=== PATIENT | female | born 2000 | race Two or more races ===

== ENCOUNTER 2024-10-28 11:02 | Emergency (ER) | payer MEDICAID, SELFPAY ==
[2024-10-28 11:11] VITALS: BP 110/66; PULSE 97; RESP 18; TEMP 36.8; O2SAT 100; BMI 19.0
--- NOTE | 2024-10-28 11:20 | XR_ITS ---
Examination: Abdomen sonogram, Limited Date and time of exam: October 28, 2024 1127 hrs. Indications: Mid abdominal burning pain beginning last night with vomiting this morning Technique: Real-time ferro scale transabdominal sonographic images of the upper abdomen obtained. Findings: Normal gallbladder. Normal common bile duct 0.2 cm Pancreatic head 2.2 cm Liver 14.4 cm smooth contour no focal liver lesions Normal hepatopedal portal venous flow Patent IVC Impression: Normal gallbladder Normal common bile duct Liver normal size no focal liver lesions
--- NOTE | 2024-10-28 11:20 | PD.EDRME ---
Rapid Medical Screening Exam RME Arrival date/time: 10/28/24 11:02 23-year-old female presents to the emergency department with complaints of abdominal pain Chief Complaint: Abdominal Pain Vital signs: Vital Signs Temperature 98.3 F 10/28/24 11:11 Pulse Rate 97 10/28/24 11:11 Respiratory Rate 18 10/28/24 11:11 Blood Pressure 110/66 10/28/24 11:11 Pulse Oximetry (%) 100 10/28/24 11:11 Oxygen Delivery Method Room Air 10/28/24 11:11
[2024-10-28] MEDS: FAMOTIDINE 20 MG TABLET PO (11:25)
--- NOTE | 2024-10-28 11:47 | PD.EDADULT ---
ED General RME/HPI General Chief complaint: Abdominal Pain Stated complaint: Abdominal pain, vomiting since last night Time Seen by Provider: 10/28/24 11:37 Arrival date/time: 10/28/24 11:02 CC: Epigastric right upper and left upper quadrant abdominal pain indigestion nausea vomiting HPI onset 11:00 last night. Prior history of similar events but not as severe as this 1. No active vomiting at the time of exam. Patient is awake alert oriented no other complaints denies diarrhea. RME / HPI RME / HPI narrative: 10/28/24 11:02 23-year-old female presents to the emergency department with complaints of abdominal pain Related Data Previous Rx's ?Medication ?Instructions ?Recorded famotidine 20 mg tablet 20 mg PO QDAY #30 tabs 10/28/24 Allergies Allergy/AdvReac Type Severity Reaction Status Date / Time Penicillins Allergy Intermediate Hives Verified 10/28/24 11:40 Review of Systems Review of Systems Narrative Review of Systems: GEN: No fever, no chills, no weight loss EYES: No discharge, no visual changes, no pain HEENT: No ear pain, no congestion, no sore throat PULM: No shortness of breath, no cough, no congestion CV: No chest pain, no dyspnea on exertion, no palpitations GI: + nausea, + vomiting, + diarrhea, no pain, no constipation : No frequency, no urgency, no dysuria MUSC/SKEL: No joint pain, no back pain SKIN: No rash PSYCH: No hallucinations, no depression HEME/LYMPH: No easy bleeding or bruising tendencies NEURO: No weakness, no headache Past Medical History Past Medical History NEUROLOGIC: Negative Neurological Disorders CARDIAC: Negative Cardiac Disorders or Congestive Heart Failure RESPIRATORY: Negative Chronic Obstructive Pulmonary Disease (COPD) GASTROINTESTINAL: Negative Gastrointestinal Disorders or Hepatitis GENITOURINARY: Negative Genitourinary Disorders or Renal Disease MUSCULOSKELETAL: Negative Musculoskeletal Disorders ENDOCRINE: Negative Endocrine Disorders, Diabetes Mellitus Type 1 or Diabetes Mellitus Type 2 HEMATOLOGIC: Negative Blood Disorders OTHER HISTORY: Negative Hospitalization, Autoimmune Disease, Down Syndrome, Developmental Delay, Shingles, Falls, Blood Transfusions, MRSA, VRSA, Human Immunodeficiency Virus (HIV), Chicken Pox, Measles, Mumps, Rubella (Swedish Measles), Pertussis, Clostridium Difficile or Cancer Family History FAMILY HISTORY: Positive Family Cancer; Negative Family Psychiatric Problems, Family Respiratory Disorders, Family Cardiac Disorders, Family Gastrointestinal Problems, Family Surgery or Family Anesthesia Reaction Social History SMOKING STATUS: Never smoker ED Exam Narrative Physical exam: [General: Not in any acute distress Head normocephalic HEENT: Face: Patient has a birthmark that involves the sclera of the eye as well as the left side of the face pupils are PERRLA EOMs intact all other subsystems of HEENT are within acceptable limits Neck is supple nontender Chest equal chest rise nontender to palpation Respiratory: Clear to auscultation no wheezes crackles or rubs CV: Rate rhythm is regular no murmurs rubs or clicks Abdomen is soft, epigastric right upper and left upper quadrant tenderness with palpation. No masses positive bowel sounds all 4 quadrants Back: No CVA tenderness no spinous process tenderness from cervical spine thoracic and lumbar spine Skin: Intact no petechiae rash induration ulceration or crepitus Extremities: Moving all extremity against resistance cap refill less than 2 seconds neurosensory intact Neuro: Awake alert oriented x3 Glascow coma 15 no focal deficits] Course Quality Measures none Orders Category Date Time Status US gall bladder Stat Exams 10/28/24 11:20 Completed CBC Stat Lab 10/28/24 11:47 Completed Comprehensive Metabolic Panel Stat Lab 10/28/24 11:47 Completed HCG Qualitative,Urine Stat Lab 10/28/24 11:50 Completed Lipase Stat Lab 10/28/24 11:47 Completed UA, C/S IF [Urinalysis, C/S if Indicated] Stat Lab 10/28/24 11:50 Completed Famotidine [Pepcid] Med 10/28/24 11:20 Discontinued 20 mg PO X1 ONE Lidocaine 2% Viscous [Xylocaine 2% Viscous] Med 10/28/24 11:49 Discontinued 15 ml PO X1 ONE mg Hyd/Al Hyd/Justin Susp [Maalox Susp] Med 10/28/24 11:49 Discontinued 30 ml PO X1 ONE Vital Signs Vital signs: Vital Signs Temperature 98.3 F 10/28/24 11:11 Pulse Rate 97 10/28/24 11:11 Respiratory Rate 18 10/28/24 11:11 Blood Pressure 110/66 10/28/24 11:11 Pulse Oximetry (%) 100 10/28/24 11:11 Oxygen Delivery Method Room Air 10/28/24 11:11 [facility] Patient data External records reviewed:: [facility] previous records Clinical information provided by:: patient Social determinants that could affect healthcare access:: none Patient has the following chronic illnesses:: None How is presenting disease/condition affected by chronic disease/condition?: uneffected by Evaluation data The following diagnostics were reviewed and interpreted by me:: lab results and radiology exam(s) Lab and/or radiology exams considered but not ordered:: CBC shows no acute leukocytosis anemia thrombocytopenia CMP shows no acute electrolyte imbalances renal impairment transaminitis or T. bili elevation Lipase normal Ultrasound of the gallbladder is within acceptable limits as interpreted by me read by radiology. Interpretation Summary: Patient got significant relief from the viscous lidocaine and Maalox patient has reflux we will discharge the patient home bland diet and famotidine. Medications Medications considered but not ordered:: None Medication administrations:: Medication Administration History Discontinued Medications Al Hydrox/Mg Hydrox/Simethicone (Mg Hyd/Al Hyd/Justin (Maalox Reg) Susp 30 Ml Udc) 30 ml PO X1 ONE Stop: 10/28/24 11:50 Last Admin: 10/28/24 12:13 Dose: 30 ml Documented By: SHIV Famotidine (Famotidine 20 Mg Tablet) 20 mg PO X1 ONE Stop: 10/28/24 11:21 Last Admin: 10/28/24 11:25 Dose: 20 mg Documented By: CASPER Lidocaine HCl (Lidocaine Viscous 2% 15 Ml Udc) 15 ml PO X1 ONE Stop: 10/28/24 11:50 Last Admin: 10/28/24 12:13 Dose: 15 ml Documented By: SHIV None Consultations Consultation(s) initiated? (list below): No Diagnosis Differential Diagnosis ED Complaint MDM: Gastritis cholelithiasis pancreatitis Most likely diagnosis given after review of the tests above:: Reflux Admission Indicated Admission indicated?: not indicated Explain why admission is indicated or not indicated:: Stable for discharge Admission Request Was there a request for admission?: No Disposition Plan Disposition Plan: Discharge Discharge Attestation Discharge Attestation: The patient and all family members were given an opportunity to ask questions and understood the discharge instructions. Discharge instructions specifically effects, indications for sooner follow up or return to the emergency department, and the expected course of current diagnosis. Patient condition: Stable Medical Decision Making Differential Diagnosis Differential Diagnosis: Gastritis cholelithiasis pancreatitis Lab Data 10/28/24 11:47 10/28/24 11:47 Labs: Lab Results 10/28/24 10/28/24 Range/Units 11:47 11:50 WBC 10.5 (3.6-11.0) Thou/mm3 RBC 4.04 (4.00-5.20) Miln/mm3 Hgb 12.4 (12.0-16.0) g/dL Hct 36.7 (36.0-46.0) % MCV 91 (80-100) fL MCH 30.7 (25.0-35.0) pg MCHC 33.8 (31.0-37.0) g/dl RDW Std Deviation 48.1 H (36.4-46.3) fL Plt Count 223 (140-440) Thou/mm3 Neut % (Auto) 83 H (37-80) % Lymph % (Auto) 9 L (10-50) % [place] % (Auto) 5 (0-12) % Eos % (Auto) 2 (0-10) % Baso % (Auto) 0 (0-2.5) % Neut # (Auto) 8.7 H (1.8-7.7) Thou/mm3 Lymph # (Auto) 1.0 (1.0-4.8) Thou/mm3 [place] # (Auto) 0.6 (0.0-0.8) Thou/mm3 Eos # (Auto) 0.2 (0.0-0.5) Thou/mm3 Baso # (Auto) 0.0 (0.0-0.2) Thou/mm3 Immature Gran # (Auto) 0.02 H (0.00-0.00) Thou/mm3 Absolute Nucleated RBC 0.00 (0.00-0.00) Thou/mm3 Immature Gran % 0 (0-0) % Nucleated RBC % 0 (0) /100 WBC Sodium 136 (136-145) mMol/L Potassium 3.5 (3.4-5.1) mMol/L Chloride 105 (98-107) mMol/L Carbon Dioxide 22.7 (20.0-31.0) mMol/L Anion Gap 8 (7-16) BUN 11 (9-23) mg/dL Creatinine 0.7 (0.6-1.3) mg/dL Estim Creat Clear Calc 94.7 (>60) mL/min eGFR > 60 (60 - ) See Note BUN/Creatinine Ratio 16 (12-20) Ratio Glucose 101 (74-106) mg/dL Calculated Osmolality 271 L (275-295) Calcium 9.1 (8.3-10.6) mg/dL Corrected Calcium 9.1 (8.5-10.1) mg/dL Total Bilirubin 0.7 (0.3-1.2) mg/dL AST 10 (0-34) U/L ALT 7 L (10-49) U/L Alkaline Phosphatase 68 (46-116) U/L Total Protein 7.2 (5.7-8.2) gm/dL Albumin 4.7 (3.5-5.0) gm/dL Globulin 2.5 (2.3-3.5) gm/dL Albumin/Globulin Ratio 1.9 (1.2-2.2) Lipase 51 (12-53) U/L Ur Collection Type Clean Catch Urine Color Yellow (Lt Yel-Yel) Urine Clarity Clear (Clear/Hazy) Urine pH 7.0 (5.0-7.0) Ur Specific [place] 1.031 (1.001-1.035) Urine Protein Trace (Neg - Trace) Urine Glucose (UA) Negative (Negative) Urine Ketones Negative (Negative) Urine Blood 2+ A (Negative) Urine Nitrite Negative (Negative) Urine Bilirubin Negative (Negative) Urine Urobilinogen (Auto) Negative (0.0-1.0) mg/dL Ur Leukocyte Esterase Positive (Negative) Urine RBC 20 H (0-3) /hpf Urine WBC 11 H (0-5) /hpf Ur Squamous Epith Cells 12 H (0-5) /hpf Urine Bacteria 1+ A (None) Ur Culture Indicated? Contaminated Urine HCG, Qual Negative Discharge Plan Plan Patient Disposition: HOME (Self Care) Patient condition on transfer: Stable Prescriptions/Referrals Prescriptions/Med Rec: New famotidine 20 mg tablet 20 mg PO QDAY Qty: 30 0RF Referrals: Carlos Thomason MD [Primary Care Provider] - In 1 week Problem List Clinical Impression: Acid reflux Patient/Caregiver Discharge Instructions Education Materials: ED GERD (Adult), ED Diet, Angelina (Adult) Print Language: Malay Stand Alone Forms: Dasia Award Info., Patient Portal Info Letter, Work/School Release PA/RELIGIOUS STUDIES PROFESSOR Supervising Physician PA/RELIGIOUS STUDIES PROFESSOR Supervising Physician: Larry Riso ENP
[2024-10-28 11:59] LABS: Collection Type, Urine Clean Catch
[2024-10-28 12:04] LABS: Basophils % (Auto) 0 % (0-2.5); Eosinophils # (Auto) 0.2 Thou/mm3 (0.0-0.5); Eosinophils % (Auto) 2 % (0-10); Hematocrit 36.7 % (36.0-46.0); Hemoglobin 12.4 g/dL (12.0-16.0); Immature Granulocytes % (Auto) 0 % (0-0); Immature Granulocytes Auto 0.02 Thou/mm3 (0.00-0.00); Lymphocytes % (Auto) 9 % (10-50); Mean Corpuscular HGB Conc 33.8 g/dl (31.0-37.0); Mean Corpuscular Hemoglobin 30.7 pg (25.0-35.0); Mean Corpuscular Volume 91 fL (80-100); Monocytes # (Auto) 0.6 Thou/mm3 (0.0-0.8); Monocytes % (Auto) 5 % (0-12); Neutrophils # (Auto) 8.7 Thou/mm3 (1.8-7.7); Neutrophils % (Auto) 83 % (37-80); Nucleated Red Blood Cell % 0 /100 WBC (0); Platelet Count 223 Thou/mm3 (140-440); RDW Standard Deviation 48.1 fL (36.4-46.3); Red Blood Count 4.04 Miln/mm3 (4.00-5.20); White Blood Count 10.5 Thou/mm3 (3.6-11.0)
[2024-10-28] MEDS: LIDOCAINE VISCOUS 2% 15 ML UDC PO (12:13)
[2024-10-28] MEDS: MG HYD/AL HYD/SIME (Maalox Reg) SUSP 30 ML UDC PO (12:13)
[2024-10-28 12:18] LABS: Bacteria,Urine 1+; Bilirubin,Urine Negative (Negative); Blood,Urine 2+ (Negative); Clarity,Urine Clear (Clear/Hazy); Color,Urine Yellow (Lt Yel-Yel); Culture Indicated,Urine Contaminated; Glucose, Urine Negative (Negative); HCG Qualitative,Urine Negative; Ketones,Urine Negative (Negative); Leukocyte Esterase,Urine Positive (Negative); Nitrite,Urine Negative (Negative); Protein,Urine Trace (Neg - Trace); RBC,Urine 20 /hpf (0-3); Specific Gravity,Urine 1.031 (1.001-1.035); Squamous Epithelial Cell,Urine 12 /hpf (0-5); Urobilinogen,Urine Negative mg/dL (0.0-1.0); WBC,Urine 11 /hpf (0-5)
[2024-10-28 12:31] LABS: Alanine Aminotransferase 7 U/L (10-49); Albumin, Serum 4.7 gm/dL (3.5-5.0); Albumin/Globulin Ratio 1.9 (1.2-2.2); Alkaline Phosphatase 68 U/L (46-116); Anion Gap 8 (7-16); Aspartate Amino Transferase 10 U/L (0-34); BUN/Creatinine Ratio 16 Ratio (12-20); Bilirubin,Total 0.7 mg/dL (0.3-1.2); Blood Urea Nitrogen 11 mg/dL (9-23); Calcium 9.1 mg/dL (8.3-10.6); Calcium (Corrected) 9.1 mg/dL (8.5-10.1); Carbon Dioxide 22.7 mMol/L (20.0-31.0); Chloride 105 mMol/L (98-107); Creatinine (Component) 0.7 mg/dL (0.6-1.3); Estimated Creatinine Clearance 94.7 mL/min (>60); Globulin 2.5 gm/dL (2.3-3.5); Glucose 101 mg/dL (74-106); Lipase 51 U/L (12-53); Osmolality,Calculated 271 (275-295); Potassium 3.5 mMol/L (3.4-5.1); Sodium 136 mMol/L (136-145); Total Protein 7.2 gm/dL (5.7-8.2); eGFR > 60 See Note
[2024-10-28 13:16] VITALS: BP 111/67; PULSE 98; RESP 17; O2SAT 100
[2024-10-28 13:18] VITALS: TEMP 36.8
== END 2024-10-28 13:23 | disposition home or self-care (01) ==
PROVIDERS: Nurse Practitioner Primary Care; Emergency Provider Emergency Medicine; PCP Family Medicine
DX: K21.9 Gastro-esophageal reflux disease without esophagitis (principal)
CPT/HCPCS: 36415; 76705; 80053; 81001; 81025; 83690; 85025; 99284; J3490; A9270

== ENCOUNTER 2025-09-20 09:58 | Inpatient (IN) | payer MEDICAID, SELFPAY ==
[2025-09-20] VITALS (164 sets, daily range): BP systolic 95–144; BP diastolic 51–89; PULSE 57–129; RESP 16–99; TEMP 36.6–36.9; O2SAT 87–100; BMI 24.5
[2025-09-20 10:41] LABS: ROM Kit Lot # 58106258
[2025-09-20 10:42] LABS: ROM Swab Mixed By: SANCF1; Rupture of Fetal Membranes Negative (Negative); Swb Mxed in Solvent 1 min? Yes
--- NOTE | 2025-09-20 11:30 | XR_ITS ---
EXAMINATION: age Limited TECHNIQUE: Limited transabdominal sonographic images pelvis INDICATIONS: Leaking amniotic fluid today Date and time: September 20, 2025, 1150 hours FINDINGS: Viable intrauterine gestation cephalic presentation spine posterior Cardiac motion 155 bpm Amniotic fluid index 4.0 cm IMPRESSION: Viable intrauterine gestation cephalic presentation Amniotic fluid index 4.0 cm
--- NOTE | 2025-09-20 12:39 | ESHP_ITS ---
Documentation for date of: 09/20/25 OB Labor/Induct. HPI History of Present Illness : 2 Para: 1 Term pregnancies: 1 pregnancies: 0 Living children: 1 History of Abortions: Spontaneous and Elective: 0 History of Vaginal deliveries: 1 History of sections: No History of : No TERESA: 09/22/25 Gestational Age (weeks): 39 Gestational Age (days): 5 Indication for induction: other (oligohydramnios) Comments: patient sees Dr Wei at [facility] and has been seeing him regularly / Last baby delivered by Lina Velazquez CNM per patient History of Present Dating criteria: based on LMP only Adequate Care: Yes Ultrasounds: abnormal US findings Abnormal ultrasound findings: JEFF is 3.9 Obstetrical complications: none Medical complications: none Labs Maternal Blood Type: O Pos Labs: Negative: Hepatitis B, HIV and Group Beta Strep Narrative: order GC and CT on urine Past Medical History Surgical History SURGICAL: Negative Section Meds Home Medications and Allergies Home Medications ?Medication ?Instructions ?Recorded ?Confirmed ?Type vits no.130-ferrous fum tab 09/20/25 History 27 mg iron-folic acid 800 mcg tablet ( Vitamin) Allergies Allergy/AdvReac Type Severity Reaction Status Date / Time Penicillins Allergy Intermediate Hives Verified 09/20/25 10:04 OB Exam Physical Exam Vital signs: Temp Pulse Resp BP Pulse Ox 97.9 F 81 18 118/67 100 09/20/25 10:13 09/20/25 10:14 09/20/25 10:13 09/20/25 10:14 09/20/25 12:09 Narrative: Size equal to dates uterus non tender Occasional/ contractions non tender FHR is category 1 feta presentation is vertex cervix 3 cm, 60 % and -2 , posterior RN exam EFW by triston Negro is 6.8 lbs Alert and oriented x 3 no shortness of breath Pain no chest pain no palpitations CVS regular rate and rhythm No CVAT Abdomen nontender, normal bowel sounds No guarding no rigidity No hernias OB Assessment & Plan Assessment and Plan (1) 39 weeks gestation of : Status: Acute (2) Oligohydramnios: Status: Acute Additional Plan Induction method: per misoprostol protocol Plan: induction Additional Plan Comment: patient given assessment and plan and agrees to move forwards / Patient would like CNM for delivery and can be transferred if accepted by CNM / I am available for back up (2) Oligohydramnios Qualifiers: Fetus number: single or unspecified fetus Trimester: third trimester Qualified Code(s): O41.03X0 - Oligohydramnios, third trimester, not applicable or unspecified
[2025-09-20 13:20] LABS: Basophils # (Auto) 0.0 Thou/mm3 (0.0-0.2); Basophils % (Auto) 0 % (0-2.5); Eosinophils # (Auto) 0.1 Thou/mm3 (0.0-0.5); Eosinophils % (Auto) 1 % (0-10); Hematocrit 34.0 % (36.0-46.0); Hemoglobin 11.3 g/dL (12.0-16.0); Immature Granulocytes Auto 0.09 Thou/mm3 (0.00-0.00); Lymphocytes # (Auto) 1.8 Thou/mm3 (1.0-4.8); Lymphocytes % (Auto) 16 % (10-50); Mean Corpuscular HGB Conc 33.2 g/dl (31.0-37.0); Mean Corpuscular Hemoglobin 29.7 pg (25.0-35.0); Mean Corpuscular Volume 90 fL (80-100); Monocytes # (Auto) 0.8 Thou/mm3 (0.0-0.8); Monocytes % (Auto) 7 % (0-12); Neutrophils # (Auto) 8.2 Thou/mm3 (1.8-7.7); Neutrophils % (Auto) 75 % (37-80); Nucleated Red Blood Cell # 0.00 Thou/mm3 (0.00-0.00); Nucleated Red Blood Cell % 0 /100 WBC (0); Platelet Count 197 Thou/mm3 (140-440); RDW Standard Deviation 46.8 fL (36.4-46.3); Red Blood Count 3.80 Miln/mm3 (4.00-5.20); White Blood Count 11.0 Thou/mm3 (3.6-11.0)
[2025-09-20] MEDS: TERBUTALINE SULF INJ 1 MG/ML VIAL 0.25 MG SC (13:42)
[2025-09-20 13:58] LABS: Syphilis Nonreactive (Nonreactive)
--- NOTE | 2025-09-20 15:31 | PD.LDPN ---
Documentation for date of: 09/20/25 OB Labor Progress Note Pain Control Pain control: tolerating well Pelvic Exam Dilation (cm): 3-4 Effacement (%): 60 station: -2 Amniotic membrane status: Leaking Contractions Monitor mode: External Contraction frequency: 2-6 Contraction phase: Resting Contraction intensity: Mild Status status: Category l Assessment and Plan Plan OB labor note: continuous present management CNM Management MD Consulted (describe details below): Yes
[2025-09-20 17:43] LABS: Chlamydia trachomatis PCR Negative (Not Detect); Neisseria Gonorrhoeae DNA PCR Negative (Not Detect); Trichomonas Negative (Negative)
[2025-09-20] MEDS: OXYTOCIN in NS 30 units 30 UNIT/500 ML BAG IV (18:10)
[2025-09-20] MEDS: MINERAL OIL 30 ML UDC TOP (22:10)
[2025-09-20] MEDS: OXYTOCIN INJ 10 UNIT/ML VIAL IM (22:18)
[2025-09-20] MEDS: OXYTOCIN in NS 20 units 20 UNIT/1,000 ML BAG 125 UNIT IV (22:21)
--- NOTE | 2025-09-20 22:42 | OBDSUM_ITS ---
Data (Sinha) Data Hx Section: No : 2 Term: 1 : 0 Livin Abortions: Spontaneous & Theraputic: 0 Delivery Data (Sinha) Labor Data Initiation of labor: Induction Induction/Augmentation Agent: Cytotec-PO and Pitocin ROM date: 09/20/25 ROM time: 08:15 Amniotic membrane rupture type: Spontaneous Amniotic fluid description: Clear Delivery Data EDC: 09/22/25 EDC calculated by:: LMP/early US confirmation Date of arrival to unit: 09/20/25 Time of arrival to unit: 09:58 Onset of labor date: 09/20/25 Onset of labor time: 18:10 Complete dilation date: 09/20/25 Complete dilation time: 21:34 [place] delivery date: 09/20/25 [place] delivery time: 22:14 Gestational age (weeks): 39 Gestational age (days): 5 Placenta delivery date: 09/20/25 Placenta delivery time: 22:17 Stage 1 total time: Labor - Stage 1 Duration 3 hours and 24 minutes Delivered by: Lina Velazquez Delivery nurse: Jarod Mayer nurse: Krystle Vanegas RN Cutter Operator Helper at delivery: No Support person(s) at delivery: father of the baby Sarmad Delivery Method Delivery method: Normal Vaginal Delivery Presentation: Vertex position: OA Anesthesia Type Anesthesia Type: Epidural Delivery Room Medications Delivery room medications: Pitocin 10 u IM, Pitocin 20 u IV, Cytotec 800 VA and other (TXA) Placenta Placenta delivery description: Spontaneous (inspected, intact) Cord blood sent to lab: Yes cord blood collection: Cord Blood Type Episiotomy Episiotomy description: None Lacerations #1: Periurethral: small, no repair EBL Estimated blood loss (ml): 400 Umbilical Cord cord description: 3 Vessels (posterior arm/left) Data (Sinha) Data order: 1 's gender: Female Identification band number: [id number] weight (gms): 3195 g Weight (pounds): 7 lbs and 0.7 ozs 1 minute: 8 5 minutes: 9
[2025-09-20] MEDS: BENZO/LANO/ALOE (Dermoplast) 60 GM CAN 1 SPRAY TOP (22:51)
[2025-09-20] MEDS: TRANEXAMIC ACID 1,000 MG IVPB 1,000 MG/100 ML BAG 200 MG IV (22:52)
[2025-09-21] VITALS (7 sets, daily range): BP systolic 104–130; BP diastolic 56–77; PULSE 64–85; RESP 16–18; TEMP 36.7–37.1; O2SAT 97–100
[2025-09-21] MEDS: IBUPROFEN TAB 400 MG TABLET 800 MG PO ×2 (02:16→17:23)
[2025-09-21 07:43] LABS: Basophils # (Auto) 0.0 Thou/mm3 (0.0-0.2); Basophils % (Auto) 0 % (0-2.5); Eosinophils # (Auto) 0.0 Thou/mm3 (0.0-0.5); Eosinophils % (Auto) 0 % (0-10); Hematocrit 29.9 % (36.0-46.0); Hemoglobin 10.1 g/dL (12.0-16.0); Immature Granulocytes Auto 0.07 Thou/mm3 (0.00-0.00); Lymphocytes # (Auto) 1.7 Thou/mm3 (1.0-4.8); Lymphocytes % (Auto) 12 % (10-50); Mean Corpuscular HGB Conc 33.8 g/dl (31.0-37.0); Mean Corpuscular Hemoglobin 30.4 pg (25.0-35.0); Mean Corpuscular Volume 90 fL (80-100); Monocytes # (Auto) 1.2 Thou/mm3 (0.0-0.8); Monocytes % (Auto) 9 % (0-12); Neutrophils # (Auto) 10.5 Thou/mm3 (1.8-7.7); Neutrophils % (Auto) 78 % (37-80); Nucleated Red Blood Cell # 0.00 Thou/mm3 (0.00-0.00); Nucleated Red Blood Cell % 0 /100 WBC (0); Platelet Count 155 Thou/mm3 (140-440); RDW Standard Deviation 47.7 fL (36.4-46.3); Red Blood Count 3.32 Miln/mm3 (4.00-5.20); White Blood Count 13.5 Thou/mm3 (3.6-11.0)
[2025-09-21] MEDS: ACETAMINOPHEN 325 MG TABLET 650 MG PO (08:12)
--- NOTE | 2025-09-21 08:39 | PD.LDDS ---
DS: Providers Provider Date of admission: 09/20/25 12:07 Primary care physician: Carlos Thomason MD Admitting Provider: Nicole Rodriguez MD Attending Provider on Admission: Lina Velazquez CNM Consults: 09/20/25 23:52 Referral Routine Comment: Attending Provider on DC: Lina Velazquez CNM Discharging Provider: Lina Velazquez CNM DS: Diagnosis Problem List Completed Was Problem List Reviewed/Reconciled?: Yes Summary/Hosp Course Peripartum Data Delivery Method: Normal Vaginal Delivery Episiotomy Description: None Laceration Description: yes (small pu no repair) complications: none Time Spent with Patient Time attestation: Total time spent providing and/or coordinating discharge services: Exam Vital Signs Temp Pulse Resp BP Pulse Ox O2 Del Method 98.8 F 64 18 130/60 100 Room Air 09/21/25 08:00 09/21/25 08:00 09/21/25 08:00 09/21/25 08:00 09/21/25 08:00 09/21/25 08:00 Discharge Plan Plan Patient Disposition: HOME (Self Care) Patient condition on transfer: Stable Prescriptions/Referrals Prescriptions/Med Rec: No Action Vitamin 27 mg iron- 800 mcg tablet Patient Comments: TAKE 1 TABLET BY MOUTH EVERY DAY Referrals: Carlos Thomason MD [Primary Care Provider, Family Practice] Patient/Caregiver Discharge Instructions Meds to Beds: No Discharge Activity: resume usual activities Print Language: Spanish Activity Restrictions/Additional Instructions: Discharge home with baby. Okay to board if baby is held. Discussed comfort measures for periurethral laceration. Return in 3 weeks with OB provider. Continue vitamins and iron. Tylenol ibuprofen for pain. Discussed danger signs symptoms and ER precautions. Discussed signs symptoms of infection Stand Alone Forms: Dasia Award Info., Patient Portal Info Letter Discharge Order Discharge Orders: Discharge (Routine); Ordered 09/21/25 Ordered By: Lina Velazquez Planned Discharge Date 09/21/25
--- NOTE | 2025-09-21 08:43 | ESPR_ITS ---
Subjective Subjective Interval history: No complaints of pain. No dizziness. Bonding breast Exam Vital Signs Temp Pulse Resp BP Pulse Ox O2 Del Method 98.8 F 64 18 130/60 100 Room Air 09/21/25 08:00 09/21/25 08:00 09/21/25 08:00 09/21/25 08:00 09/21/25 08:00 09/21/25 08:00 Narrative Exam Vital signs stable afebrile. Breast soft. Fundus firm below umbilicus. Perineum intact no swelling. Small lochia. Uterus well involuted. Negative Homans' sign. 2+ DTRs Objective Labs 09/21/25 07:17 Labs: Laboratory Results - last 24 hr 09/20/25 09/20/25 09/20/25 10:05 10:20 12:20 WBC 11.0 RBC 3.80 L Hgb 11.3 L Hct 34.0 L MCV 90 MCH 29.7 MCHC 33.2 RDW Std Deviation 46.8 H Plt Count 197 Neut % (Auto) 75 Lymph % (Auto) 16 [place] % (Auto) 7 Eos % (Auto) 1 Baso % (Auto) 0 Neut # (Auto) 8.2 H Lymph # (Auto) 1.8 [place] # (Auto) 0.8 Eos # (Auto) 0.1 Baso # (Auto) 0.0 Immature Gran # (Auto) 0.09 H Absolute Nucleated RBC 0.00 Immature Gran % 1 H Nucleated RBC % 0 Membrane Rupture Negative Syphilis Serology Nonreactive Chlam trachomat DNA PCR Negative N.gonorrhoeae DNA (PCR) Negative Trichomonas DNA Probe Negative Blood Type O Positive Antibody Screen NEGATIVE Blood Bank Wristband ID Yes 09/21/25 07:17 WBC 13.5 H RBC 3.32 L Hgb 10.1 L Hct 29.9 L MCV 90 MCH 30.4 MCHC 33.8 RDW Std Deviation 47.7 H Plt Count 155 D Neut % (Auto) 78 Lymph % (Auto) 12 [place] % (Auto) 9 Eos % (Auto) 0 Baso % (Auto) 0 Neut # (Auto) 10.5 H Lymph # (Auto) 1.7 [place] # (Auto) 1.2 H Eos # (Auto) 0.0 Baso # (Auto) 0.0 Immature Gran # (Auto) 0.07 H Absolute Nucleated RBC 0.00 Immature Gran % 1 H Nucleated RBC % 0 Membrane Rupture Syphilis Serology Chlam trachomat DNA PCR N.gonorrhoeae DNA (PCR) Trichomonas DNA Probe Blood Type Antibody Screen Blood Bank Wristband ID Assessment & Plan Problem List (1) 39 weeks gestation of : Status: Acute (2) Oligohydramnios: Status: Acute Assessment Comment Assessment comment: 24 hr pp Plan Comment Plan Comment: Discharge home with baby today. And okay to board if baby is held until tomorrow. Discussed danger signs symptoms and ER precautions. Discussed signs symptoms of infection. Continue vitamins and iron. Tylenol or ibuprofen for pain. Discussed signs and symptoms of infection. And schedule with OB provider in 3 weeks for check Time Spent With Patient Time: Total time spent is greater than 50% in coordination of care (as documented) at patient's floor/unit and/or counseling patient:
--- NOTE | 2025-09-21 15:20 | PC.SS ---
BUDGET TECHNICIAN conducted bedside contact with the patient to address nursing referral indicating patient possessed history of anxiety.? BUDGET TECHNICIAN introduced self and role.? At bedside with patient was CLARISA, Sarmad Munoz.? Patient gave permission for FOB to be present during discussion.? Patient confirmed past history of anxiety as a minor.? Patient denies current possession of anxiety.? FOB confirmed is not experiencing anxiety and there is not any impact with regards to the patient?s daily functioning.? , Gia; is the patient?s second child.? Infant delivered naturally.? Patient interacting appropriate with infant.? OB services provided by I[facility] Garcia.? Patient reports compliance with OB appointments.? Patient plans on breast feeding the .? Patient is aligned with WIC, SNAP or TANF.? Patient denies history of alcohol/drug abuse.? Patient denies episodes of domestic violence.? Patient has access to appropriate supplies and equipment.? FOB will provide transportation upon discharge.? Patient describes possessing support system consisting of spouse and extended family.? BUDGET TECHNICIAN provided community resources to include [employer] and [employer].? No further intervention required at this time, social services specialist will be available to address any further concerns.? BUDGET TECHNICIAN updated bedside nurse.?
[2025-09-21] MEDS: DOCUSATE SOD 100 MG CAPSULE PO (21:34)
== END 2025-09-21 23:50 | disposition home or self-care (01) | DRG 560 ==
LOC: S4SX 15:30 → S4NX 09-21 03:11
PROVIDERS: Admitting Provider Obstetrics & Gynecology; PCP Family Medicine; Visit Provider Advanced Practice Midwife
DX: O41.03X0 Oligohydramnios, third trimester, not applicable or unspecified (principal); Z37.0 Single live birth; Z3A.39 39 weeks gestation of pregnancy; Z88.0 Allergy status to penicillin
CPT/HCPCS: 36415; 59025; 59409; 76815; 84112; 85025; 86780; 86850; 86900; 86901; 87491; 87591; 87661; 94762; J2590; J2795; J3010; J3105; J3490; S0191; A9270